=== PATIENT | male | born 1990 | race African-American/Black ===

== ENCOUNTER 2018-01-08 18:43 | Emergency (ER) | payer SELFPAY ==
[~2018-01-08] VITALS: Ht 175.3 cm; Wt 67.2 kg
[2018-01-08 19:15] LABS: CHLORIDE 103 mEq/L (99-109); POTASSIUM 3.7 mEq/L (3.7-5.4); SODIUM 140 mEq/L (136-147)
[2018-01-08 19:17] LABS: GLUCOSE 74 mg/dL (70-99); HEMATOCRIT 36.4 % (38.0-50.0); HEMOGLOBIN 11.8 G/DL (12.5-16.6); MCH 23.6 PG (29.0-34.0); MCHC 32.4 G/DL (30.0-36.0); MCV 72.9 FL (86-99); PLATELET COUNT 191 K/uL (156-360); RBC DIS.WIDTH-SD 38.3 % (39-53); RED BLOOD COUNT 4.99 M/uL (4.00-5.50)
[2018-01-08 19:19] LABS: TOTAL BILIRUBIN 0.9 mg/dL (0.0-1.0)
[2018-01-08 19:21] LABS: ALKALINE PHOSPHATASE 67 IU/L (3-129)
[2018-01-08 19:22] LABS: PTT 27.7 SEC (25-37); UREA NITROGEN (BUN) 12 mg/dL (9-23)
[2018-01-08 19:23] LABS: AST (GOT) 34 IU/L (2-34)
[2018-01-08 19:24] LABS: ALT (GPT) 28 IU/L (3-49); LIPASE 37 U/L (1.0-51.0)
[2018-01-08 19:30] LABS: GFR ESTIMATE (CALCULATED) > 59 mL/min/ (58.99-99999)
[2018-01-08 20:17] LABS: AMYLASE 93 IU/L (1-118)
[2018-01-08 20:26] LABS: ACETAMINOPHEN (TYLENOL) < 10 mcg/mL (10-30)
[2018-01-08 20:40] LABS: APPEARANCE CLEAR ((CLEAR)); BILIRUBIN NEGATIVE; BLOOD NEGATIVE; COLOR YELLOW ((YELLOW)); GLUCOSE (STRIP) NEGATIVE; KETONES NEGATIVE; LEUKOCYTES NEGATIVE; NITRITE NEGATIVE; PROTEIN (STRIP) NEGATIVE; SPECIFIC GRAVITY 1.027 (1.000-1.030); UCUL ADDED? NO
[2018-01-09 00:37] VITALS: BP 105/70
== END 2018-01-09 00:45 | disposition home or self-care (01) ==
LOC: EME 18:43
DX: R17 Unspecified jaundice (principal); F17.200 Nicotine dependence, unspecified, uncomplicated
CPT/HCPCS: 74177; 80053; 81003; 82150; 83690; 85027; 85610; 85730; 99281; 99285; G0480; J7030